=== PATIENT | male | born 1985 | race Caucasian/White ===

== ENCOUNTER 2018-04-14 04:30 | Emergency (ER) | payer SELFPAY ==
[~2018-04-14] VITALS: Ht 180.3 cm; Wt 83.9 kg
[2018-04-14 04:30] VITALS: BP_SYST 133
--- NOTE | 2018-04-14 04:30 | NUR ---
Patient to ER CHAIR to gown for evaluation. Side rails up. Report given to VIANNEY MILLER.
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
--- NOTE | 2018-04-14 05:03 | NUR ---
ER IN [facility] examining patient.
[2018-04-14 05:08] VITALS: BP_SYST 133
--- NOTE | 2018-04-14 05:08 | NUR ---
Patient given written and verbal discharge instructions and verbalizes understanding. ER MD JACOBS discussed with patient the results and treatment provided. Patient in stable condition. ID arm band removed. IV catheter removed intact and dressing applied, no active bleeding. NO Rx given. Patient educated on pain management and to follow up with PMD. Pain Scale 0/10. Opportunity for questions provided and answered. Medication side effect fact sheet provided. Patient discharged into the custody of [facility].
== END 2018-04-14 05:08 ==
LOC: SED 04:30
DX: Z02.83 Encounter for blood-alcohol and blood-drug test (principal); V89.2XXA Person injured in unspecified motor-vehicle accident, traffic, initial encounter; Y93.89 Activity, other specified; Y92.410 Unspecified street and highway as the place of occurrence of the external cause; Y99.8 Other external cause status
CPT/HCPCS: 99283